=== PATIENT | male | born 1985 | race Caucasian/White ===

== ENCOUNTER 2021-12-24 12:36 | Emergency (ER) | payer BC, OTHER ==
[2021-12-24] MEDS ORDERED: DIPHTH,PERTUSS(ACELL),TET 0.5 ML DISP.SYRIN IM ONE ×2 (12:53→13:00)
[2021-12-24 12:58] VITALS: BP 134/63; PULSE 56; TEMP 98.2; BMI 24.4
== END 2021-12-24 13:34 | disposition home or self-care (01) ==
LOC: FER 12:36
PROC: 3E0234Z Introduction of Serum, Toxoid and Vaccine into Muscle, Percutaneous Approach (ICD-10-PCS; principal; 2021-12-24)
DX: S01.111A Laceration without foreign body of right eyelid and periocular area, initial encounter (principal); Y04.8XXA Assault by other bodily force, initial encounter
CPT/HCPCS: 90715; 99284-25